=== PATIENT | female | born 1975 | race Two or more races ===

== ENCOUNTER 2017-08-31 02:30 | Emergency (ER) | payer MEDICAID ==
[~2017-08-31] VITALS: Ht 162.6 cm; Wt 91.0 kg
[2017-08-31] MEDS ORDERED: LORazepam 1MG TABLET PO ONE (03:00)
[2017-08-31] MEDS ORDERED: LORazepam 1MG TABLET ONE (03:21)
[2017-08-31 03:27] VITALS: BP 140/90
[2017-08-31] MEDS ORDERED: PLEASE ENTER ALLERGIES MC SCH (04:00)
== END 2017-08-31 03:47 | disposition home or self-care (01) ==
LOC: ED 03:40
DX: F41.1 Generalized anxiety disorder (principal); F10.10 Alcohol abuse, uncomplicated; Z72.89 Other problems related to lifestyle; Z59.0 Homelessness
CPT/HCPCS: 99284

== ENCOUNTER 2018-06-26 08:34 | Emergency (ER) | payer MEDICAID ==
[~2018-06-26] VITALS: Ht 162.6 cm; Wt 67.0 kg
[2018-06-26] MEDS ORDERED: DIPH,PERTUSS(ACELL),TET VAC/PF 0.5 ML IM-VACC ONE ×4 (09:00→10:19)
[2018-06-26] MEDS ORDERED: OXYcodone/APAP 5/325MG TABLET PO ONE (09:00)
[2018-06-26] MEDS ORDERED: LIDOCAINE-MPF 1%, 5ML INFIL ONE (09:00)
[2018-06-26] MEDS ORDERED: ONDANSETRON ODT 4 MG PO ONE (09:00)
[2018-06-26] MEDS ORDERED: LIDOCAINE-MPF 1%, 5ML ONE (09:33)
[2018-06-26] MEDS ORDERED: OXYcodone/APAP 5/325MG TABLET ONE (09:34)
[2018-06-26] MEDS ORDERED: ONDANSETRON ODT 4 MG ONE (10:10)
[2018-06-26 10:24] VITALS: BP 121/67
--- NOTE | 2018-06-26 10:26 | NUR ---
Patient/Caregiver given discharge instructions and they have confirmed that they understand the instructions. Patient ambulatory with steady gait. Pt. has her rx in her hand.
== END 2018-06-26 10:45 | disposition home or self-care (01) ==
LOC: ED 10:42
DX: L03.012 Cellulitis of left finger (principal); Z88.8 Allergy status to other drugs, medicaments and biological substances; Z90.49 Acquired absence of other specified parts of digestive tract; Z72.9 Problem related to lifestyle, unspecified
CPT/HCPCS: 10060; 90471; 90715; 99283; Q0162

== ENCOUNTER → 2018-08-12 | Outpatient (CLI) | payer OTHER | END | disposition home or self-care (01) | LOC: RAD 13:40 | PROVIDERS: ATTEND Orthopaedic Surgery | DX: M19.171 Post-traumatic osteoarthritis, right ankle and foot (principal); M21.6X1 Other acquired deformities of right foot; Z87.81 Personal history of (healed) traumatic fracture ==

== ENCOUNTER 2018-10-15 23:10 | Emergency (ER) | payer MEDICAID, OTHER ==
[~2018-10-15] VITALS: Ht 162.6 cm; Wt 70.0 kg
[2018-10-15 23:11] VITALS: BP 121/73
[2018-10-15] MEDS ORDERED: HYDROcodone/APAP 5/325 TABLET ONE (23:51)
[2018-10-16] MEDS ORDERED: HYDROcodone/APAP 5/325 TABLET PO ONE
[2018-10-16] MEDS ORDERED: BICILLIN-LA 2,400,000 UNITS/4 ML IM ONE
== END 2018-10-16 00:16 | disposition home or self-care (01) ==
LOC: ED 23:59
DX: K04.7 Periapical abscess without sinus (principal)
CPT/HCPCS: 96372; 99283; J0561

== ENCOUNTER 2019-06-17 18:02 | Emergency (ER) | payer MEDICAID ==
[~2019-06-17] VITALS: Ht 162.6 cm; Wt 80.0 kg
--- NOTE | 2019-06-17 18:30 | NUR ---
PT ZAIN FROM STREET. FOUND WANDERING. STS "A LOT OF VODKA". WAS GOING TO ASSISTED THEN TOLD PD SHE OVERDOSED. MEDS IN PURSE: NAPROXEN, EXCEDRIN, MELATONIN, PROMETHAZINE. EXCEDRIN BOTTLE FILLED 2 DAYS AGO, EMPTY. DENIES SI. STS WAS NOT TRYING TO OVERDOSE. DENIES DRUG USE. NOT COMPLIANT W/ RN QUESTIONING. ATTACKED EMS IN TRIAGE, PLACED IN 4 POINT RESTRAINTS BY SECURITY. VSS. SR 70S ON MONITOR. UNABLE TO ELABORATE ON MEDICAL HX. ERMD AT BEDSIDE FOR EVAL. ORDER FOR 4 POINTS SIGNED. LAB AT BEDSIDE. SAFETY MAINTAINED. SITTER IN HALLWAY.
[2019-06-17] MEDS ORDERED: ZIPRASIDONE 20 MG INJ IM ONE ×3 (19:00→20:30)
--- NOTE | 2019-06-17 19:08 | NUR ---
REPORT TO THIEN EVANS.
--- NOTE | 2019-06-17 19:08 | NUR ---
BS REPORT OF PT FROM CRISTINA DICKSON AND ASSUMING CARE OF PT AT THIS TIME.
[2019-06-17 19:28] LABS: BASOPHILS # (AUTO) 0.05 x10^3/uL (0-0.1); BASOPHILS % (AUTO) 1 % (0-1); EOSINOPHILS # (AUTO) 0.24 x10^3/uL (0-0.4); EOSINOPHILS % (AUTO) 4 % (1-7); LYMPHOCYTES # (AUTO) 2.06 x10^3/uL (1-3.4); LYMPHOCYTES % (AUTO) 35 % (22-44); MD NO; MEAN CORPUSCULAR HGB CONC 32.9 g/dL (32.4-35.8); MEAN CORPUSCULAR VOLUME 91.2 fL (80-100); MEAN PLATELET VOLUME 8.1 fL (7.4-10.4); MONOCYTES # (AUTO) 0.52 x10^3/uL (0.2-0.8); MONOCYTES % (AUTO) 9 % (2-9); NEUTROPHILS # (AUTO) 2.96 x10^3/uL (1.8-6.8); NEUTROPHILS % (AUTO) 51 % (42-75); PLATELET COUNT 275 x10^3/uL (130-400); RED BLOOD COUNT 4.51 x10^6/uL (3.82-5.3); RED CELL DISTRIBUTION WIDTH 13.7 % (9.6-15.2)
[2019-06-17 19:34] LABS: ALBUMIN 3.8 g/dL (3.4-5.0); ANION GAP 8 mmol/L (5-15); CALCIUM 8.2 mg/dL (8.5-10.1); CHLORIDE 115 mmol/L (98-107)
[2019-06-17 19:37] LABS: ALANINE AMINOTRANSFERASE 15 U/L (12-78); ALKALINE PHOSPHATASE 68 U/L (45-117); BILIRUBIN,TOTAL 0.3 mg/dL (0.2-1.0); TOTAL PROTEIN 7.4 g/dL (6.4-8.2)
--- NOTE | 2019-06-17 20:33 | NUR ---
PT MEDICATED PER MAR AT THIS TIME.
--- NOTE | 2019-06-17 21:27 | NUR ---
PT RESTRAINTS REMOVED PT IS RESPONDING TO MEDICATIONS ORDERED BY ERP, AND PT IS NOT CURRENTLY AGITATED/COMBATIVE AT THIS TIME.
[2019-06-17 22:58] VITALS: BP 145/71
--- NOTE | 2019-06-17 22:58 | NUR ---
PT ASLEEP IN GURNEY AT THIS TIME; NADN. BILATERAL EQUAL RISE AND FALL OF CHEST NOTED.
--- NOTE | 2019-06-17 23:44 | NUR ---
PT ASLEEP IN [facility] AT THIS TIME; [place]. SITTER OUTSIDE OF PT ROOM FOR OBSERVATION OF PT AT THIS TIME.
--- NOTE | 2019-06-18 01:29 | NUR ---
PT SLEEPING IN [facility] AT THIS TIME;
--- NOTE | 2019-06-18 05:16 | NUR ---
PT D/C WITH D/C SUMMARY. ALL QUESTIONS ANSWERED. PT INSTRUCTED TO WAIT IN LOBBY FOR FOR RIDE HOME. PT PROVIDED WARM BLANKET TO WAIT IN LOBBY WITH AND INSTRUCTED NOT TO TAKE BLANKET OFF OF PROPERTY. PT DENIES ANY OTHER NEEDS PERTAINING TO THIS VISIT, AND AMBULATES TO LOBBY WITH STEADY GAIT FOR D/C HOME.
== END 2019-06-18 05:19 | disposition home or self-care (01) ==
LOC: ED 21:31
DX: F10.220 Alcohol dependence with intoxication, uncomplicated (principal); Y90.9 Presence of alcohol in blood, level not specified
CPT/HCPCS: 36415; 80053; 80307; 85025; 93005; 96372; 99284; J3486

== ENCOUNTER 2019-08-06 19:29 | Emergency (ER) | payer SELFPAY ==
[~2019-08-06] VITALS: Ht 162.6 cm; Wt 80.0 kg
--- NOTE | 2019-08-06 19:42 | NUR ---
Pt noted to ambulate to the bathroom unassisted upon arrival from [facility].
--- NOTE | 2019-08-06 20:01 | NUR ---
Pt presents to room from bathroom. Pt states she has been taking antibiotics for recent URI illness with no relief. Pt cannot recall when she developed symptoms d/t "pain". Pt reports a frontal headache with her nasal congestion. Pt goes on to state her current period started 2 days ago and that she "has had more of them than usual lately". Pt is a vague historian otherwise.
--- NOTE | 2019-08-06 20:19 | NUR ---
pt refusing xrays until after pn. meds
[2019-08-06] MEDS ORDERED: DEXAMETHASONE 4 MG TABLET PO ONE (20:30)
[2019-08-06] MEDS ORDERED: KETOROLAC 30 MG/1 ML IM ONE (20:30)
[2019-08-06] MEDS ORDERED: DEXAMETHASONE 4 MG TABLET ONE (20:39)
[2019-08-06] MEDS ORDERED: KETOROLAC 30 MG/1 ML ONE (20:39)
[2019-08-06 22:01] VITALS: BP 117/57
== END 2019-08-06 22:18 | disposition home or self-care (01) ==
LOC: ED 21:30
DX: S90.32XA Contusion of left foot, initial encounter (principal); R05 Cough; R06.00 Dyspnea, unspecified; W18.39XA Other fall on same level, initial encounter; Y93.89 Activity, other specified; Y92.89 Other specified places as the place of occurrence of the external cause; Y99.8 Other external cause status
CPT/HCPCS: 71046; 73630; 96372; 99284; J1885

== ENCOUNTER 2020-02-20 21:17 | Emergency (ER) | payer OTHER ==
[~2020-02-20] VITALS: Ht 162.6 cm; Wt 63.0 kg
[2020-02-20 21:18] VITALS: BP 112/65
--- NOTE | 2020-02-20 21:28 | NUR ---
DIFFICULT TO GET PT TO ANSWER QUESTIONS IN TRIAGE. NOT CLEAR WITH ANSWERS BUT DOES NOT APPEAR CONFUSED
--- NOTE | 2020-02-20 23:20 | NUR ---
Pt from lobby to ED room 40
--- NOTE | 2020-02-20 23:31 | NUR ---
Pt noted not to be in room at this time, security states pt eloped
== END 2020-02-20 23:34 | disposition left against medical advice (07) ==
LOC: ED 21:47
DX: F10.10 Alcohol abuse, uncomplicated (principal); Z72.9 Problem related to lifestyle, unspecified; Y90.0 Blood alcohol level of less than 20 mg/100 ml
CPT/HCPCS: 99283

== ENCOUNTER 2020-05-30 02:47 | Emergency (ER) | payer SELFPAY ==
--- NOTE | 2020-05-30 02:53 | NUR ---
ESCORTED OUT WITH SECURITY PT REFUSING ALL MEDICAL CARE/ INTERVENTIONS. PT HAS NO COMPLAINT AND WANTS US TO TELL HER WHY SHE IS HERE. ERP UNABLE TO COMPLETE FULL EXAM PT IS UNCOOPERATIVE WITH HIM WELL.
== END 2020-05-30 02:56 | disposition home or self-care (01) ==
LOC: ED 02:50
DX: Z00.00 Encounter for general adult medical examination without abnormal findings (principal); Z72.9 Problem related to lifestyle, unspecified; F17.210 Nicotine dependence, cigarettes, uncomplicated; Z90.49 Acquired absence of other specified parts of digestive tract
CPT/HCPCS: 99283; 99406

== ENCOUNTER 2020-05-30 07:04 | Emergency (ER) | payer SELFPAY ==
[~2020-05-30] VITALS: Ht 134.6 cm; Wt 72.3 kg
[2020-05-30 07:06] VITALS: BP 128/80
[2020-05-30 07:57] LABS: BASOPHILS % (AUTO) 1 % (0-1); EOSINOPHILS % (AUTO) 0 % (1-7); LYMPHOCYTES % (AUTO) 12 % (22-44); MEAN CORPUSCULAR HEMOGLOBIN 31.3 pg (27.0-34.8); MEAN CORPUSCULAR HGB CONC 34.3 g/dL (32.4-35.8); MEAN PLATELET VOLUME 7.2 fL (7.4-10.4); MONOCYTES % (AUTO) 8 % (2-9); NEUTROPHILS % (AUTO) 79 % (42-75); PLATELET COUNT 338 x10^3/uL (130-400); RED BLOOD COUNT 3.98 x10^6/uL (3.82-5.3)
[2020-05-30 07:59] LABS: MD NO
[2020-05-30] MEDS ORDERED: SODIUM CHLORIDE 0.9% 1,000ML IVBOLUS ONE (08:00)
[2020-05-30] MEDS ORDERED: SODIUM CHLORIDE FLUSH 10ML SYR IVF ONE (08:00)
[2020-05-30 08:09] LABS: ALANINE AMINOTRANSFERASE 42 U/L (12-78); ALBUMIN 3.5 g/dL (3.4-5.0); ANION GAP 6 mmol/L (5-15); CALCIUM 8.7 mg/dL (8.5-10.1); CHLORIDE 113 mmol/L (98-107); CREATININE 0.51 mg/dL (0.55-1.02)
[2020-05-30 08:11] LABS: ALKALINE PHOSPHATASE 93 U/L (45-117); BILIRUBIN,TOTAL 0.6 mg/dL (0.2-1.0); TOTAL PROTEIN 6.7 g/dL (6.4-8.2)
[2020-05-30] MEDS ORDERED: ONDANSETRON ODT 4 MG PO ONE (08:30)
[2020-05-30] MEDS ORDERED: IBUPROFEN 200 MG TABLET PO ONE (08:30)
--- NOTE | 2020-05-30 08:30 | NUR ---
PT IN HOSPITAL GOWN. PT INFORMED A URINE SAMPLE WAS ORDERED. PT STATED, THEY ALREADY TOOK MY BLOOD, THEY NEED URINE TOO? PT INFORMED ERP ORDERED THE URINE SAMPLE. PT STATED WELL I CAN'T PEE. INFORMED PT A LITER BLOUS WAS ORDERED WHICH WILL HELP HER PRODUCE A URINE SAMPLE. PT WAS RELUCTANT TO PUT ON HOSPITAL GOWN. EXPLAINED TO PT IT'S PREFERRED SHE BE IN A GOWN SINCE THIS RN WILL NEED TO START AN IV. PT CHANGED INTO GOWN. PT THROWING HERSELF AROUND IN GURNEY AND SIGHING HEAVILY AT EACH REQUEST FROM THIS RN. 1ST ATTEMPT AT IV RESULTED IN SWELLING AND PAIN AT INSERTION SITE. EXPLAINED TO PT THIS IV WILL NOT WORK, WILL NEED TO TRY AGAIN. PT STATED "NO, YOU GUYS KEEP POKING ME. I DON'T WANT YOU TOUCHING ME AGAIN, YOU DON'T KNOW WHAT YOU'RE DOING". THIS RN STARTED TO ASK PT QUESTIONS. WHEN ASKED PT IF SHE HAS FALLEN IN THE LAST FEW MONTHS, PT STATED, OH, I ALMOST FELL OUT OF A WINDOW. THIS RN REPHRASED THE QUESTION TO, IT PT LOST BALANCE AND FELL. PT TURNED OVER WITH BACK TO THIS RN AND REFUSED TO SPEAK ANYMORE. ERP INFORMED PT REFUSING IV PLACEMENT.
--- NOTE | 2020-05-30 08:40 | NUR ---
PT UP TO USE BATHROOM. PT GIVEN URINE CUP AND EXPLAINED TO PT HOW TO PROVIDE URINE SAMPLE. PT STATED SHE UNDERSTANDS
[2020-05-30] MEDS ORDERED: IBUPROFEN 600 MG TABLET ONE (08:43)
[2020-05-30] MEDS ORDERED: ONDANSETRON ODT 4 MG ONE (08:43)
--- NOTE | 2020-05-30 08:50 | NUR ---
PT STATED SHE WAS UNABLE TO VOID. PT DIDN'T WANT IBU AT THIS TIME. PT STATED SHE WILL NOT BE ABLE TO HOLD IT DOWN. PT GIVEN ZOFRAN. PT RESTING IN BED WITH EYES CLOSED AT THIS TIME. WILL CONTINUE TO MONITOR.
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
--- NOTE | 2020-05-30 09:48 | NUR ---
ASKED PT AGAIN FOR A URINE SAMPLE. PT STATED SHE IS UNABLE TO AMBULATE TO BATHROOM DUE TO HER ARTHRITIS. PT STATED SHE WANTS TO WAIT FOR THE IBU TO TAKE EFFECT FIRST. WILL INFORM ERP. PT ABLE TO DRINK WATER AND MILK WITHOUT PROBLEMS
--- NOTE | 2020-05-30 09:50 | NUR ---
PT HAS REMOVED ALL MONITORING EQUIPMENT. HAS PUT HER STREET CLOTHES BACK ON AND IS SLEEPING WITH FACE COVERED. PT ASKING TO BE LEFT ALONE SO SHE CAN REST SHE IS SO SICK. WILL CONINUE TO MONITOR.
== END 2020-05-30 11:29 | disposition home or self-care (01) ==
LOC: ED 08:11
DX: R11.2 Nausea with vomiting, unspecified (principal); R42 Dizziness and giddiness; R19.7 Diarrhea, unspecified; R05 Cough; M79.10 Myalgia, unspecified site; R51.9 Headache, unspecified
CPT/HCPCS: 36415; 80053; 85025; 99283; Q0162

== ENCOUNTER 2020-07-12 19:29 | Emergency (ER) | payer SELFPAY ==
[~2020-07-12] VITALS: Ht 162.6 cm; Wt 65.0 kg
[2020-07-12 20:07] VITALS: BP 125/70
== END 2020-07-12 20:15 | disposition home or self-care (01) ==
LOC: ED 20:00
DX: F15.129 Other stimulant abuse with intoxication, unspecified (principal); F10.10 Alcohol abuse, uncomplicated; F17.210 Nicotine dependence, cigarettes, uncomplicated; Z72.9 Problem related to lifestyle, unspecified; Z90.49 Acquired absence of other specified parts of digestive tract; Y90.0 Blood alcohol level of less than 20 mg/100 ml
CPT/HCPCS: 99283; 99406

== ENCOUNTER 2020-09-10 11:18 | Emergency (ER) | payer SELFPAY ==
[~2020-09-10] VITALS: Ht 162.6 cm; Wt 73.1 kg
[2020-09-10] MEDS ORDERED: LORazepam 2 MG/ML, 1ML ONE (11:53)
[2020-09-10] MEDS ORDERED: LORazepam 2 MG/ML, 1ML IVPush ONE (12:00)
[2020-09-10] MEDS ORDERED: SODIUM CHLORIDE FLUSH 10ML SYR IVF ONE (12:00)
[2020-09-10] MEDS ORDERED: SODIUM CHLORIDE 0.9% 1,000 ML IV ONE (12:00)
--- NOTE | 2020-09-10 12:07 | NUR ---
PIV EST BY EMT. PT MEDICATED PER EMAR. NS INFUSING AT THIS TIME.
--- NOTE | 2020-09-10 12:08 | NUR ---
PT'S STRAIGHT CATH'D USING STERILE TECHNIQUE. URINE COLLECTED AND UA SENT.
[2020-09-10 12:10] LABS: BASOPHILS % (AUTO) 1 % (0-1); EOSINOPHILS % (AUTO) 0 % (1-7); LYMPHOCYTES % (AUTO) 20 % (22-44); MEAN CORPUSCULAR HEMOGLOBIN 29.9 pg (27.0-34.8); MEAN CORPUSCULAR HGB CONC 33.8 g/dL (32.4-35.8); MEAN PLATELET VOLUME 7.4 fL (7.4-10.4); MONOCYTES % (AUTO) 8 % (2-9); NEUTROPHILS % (AUTO) 72 % (42-75); PLATELET COUNT 279 x10^3/uL (130-400); RED BLOOD COUNT 3.95 x10^6/uL (3.82-5.3); RED CELL DISTRIBUTION WIDTH 15.8 % (9.6-15.2)
[2020-09-10 12:14] LABS: MD NO
[2020-09-10 12:17] LABS: MICROSCOPIC AUTO
[2020-09-10 12:23] LABS: ALBUMIN 4.2 g/dL (3.4-5.0); ANION GAP 7 mmol/L (5-15); CALCIUM 8.6 mg/dL (8.5-10.1); CHLORIDE 108 mmol/L (98-107); CREATININE 0.68 mg/dL (0.55-1.02); SALICYLATE LEVEL < 1.7 mg/dL (2.8-20.0)
[2020-09-10 12:28] LABS: AMPHETAMINE SCREEN, URINE Negative (Negative); BARBITURATE SCREEN, URINE Negative (Negative); BENZODIAZEPINE SCREEN, URINE Negative (Negative); CANNABINOID SCREEN, URINE Positive (Negative); COCAINE SCREEN, URINE Negative (Negative); METHADONE SCREEN, URINE Negative (Negative); OPIATE SCREEN, URINE Negative (Negative)
[2020-09-10 12:34] LABS: ALANINE AMINOTRANSFERASE 37 U/L (12-78); ALKALINE PHOSPHATASE 84 U/L (45-117); BILIRUBIN,TOTAL 0.7 mg/dL (0.2-1.0); TOTAL PROTEIN 7.7 g/dL (6.4-8.2)
--- NOTE | 2020-09-10 12:41 | NUR ---
TASK RN, COVERING PRIMARY RN MEAL BREAK. CLINICAL SCREEN AND PHYSICAL ASSESSMENT COMPLETED TO BEST OF ABILITY WITH BOYFRIEND PROVIDING SOME HX. PT TO CT.
[2020-09-10] MEDS ORDERED: OMNIPAQUE 350 MG/ML, 100ML BOTTLE ONE (12:54)
--- NOTE | 2020-09-10 13:10 | NUR ---
PT SLEEPING IN [place]. RESPS EVEN AND UNLABORED. VSS.
--- NOTE | 2020-09-10 15:05 | NUR ---
THIS RN ATTEMPTED TO DC BUT PT IS NOT ANSWERING ANY QUESTIONS AT THIS TIME. EDMD NOTIFIED.
--- NOTE | 2020-09-10 15:53 | NUR ---
EDMD AT BEDSIDE AND OK'D TO DC.
[2020-09-10 15:54] VITALS: BP 113/58
--- NOTE | 2020-09-10 16:35 | NUR ---
PT DIDN'T LEAVE ROOM AFTER DC. SECURITY PAGED.
== END 2020-09-10 16:29 | disposition home or self-care (01) ==
LOC: ED 13:56
DX: F10.220 Alcohol dependence with intoxication, uncomplicated (principal); F41.1 Generalized anxiety disorder; R94.31 Abnormal electrocardiogram [ECG] [EKG]; Z90.49 Acquired absence of other specified parts of digestive tract; Y90.0 Blood alcohol level of less than 20 mg/100 ml
CPT/HCPCS: 36415; 70450; 71045; 74177; 80053; 80299; 80307; 80320; 81001; 82140; 85025; 93005; 96361; 96374; 99285; J2060; J7030; Q9967; 80329; G0480

== ENCOUNTER 2020-09-13 20:26 | Emergency (ER) | payer SELFPAY ==
[~2020-09-13] VITALS: Ht 165.1 cm; Wt 60.0 kg
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
--- NOTE | 2020-09-13 20:55 | NUR ---
UNABLE TO DRAW LABS AT THIS TIME. PT THRASING.
[2020-09-13] MEDS ORDERED: ZIPRASIDONE 20 MG INJ IM ONE (21:00)
--- NOTE | 2020-09-13 21:12 | NUR ---
PT LAYS QUIETLY IN [facility] UNTIL HOSPITAL STAFF WALKS INTO ROOM. PT THEN BEGINS TO THRASH AND IS UNCCOPERATIVE. PT STILL UNABLE TO ANSWER QUESTIONS OR COMMUNICATE.
--- NOTE | 2020-09-13 21:53 | NUR ---
REPORT GIVEN TO CRISTINA PELAEZ
--- NOTE | 2020-09-13 21:53 | NUR ---
BEDSIDE REPORT FROM CRISTINA SONG. [facility] AT [facility], GENE.
--- NOTE | 2020-09-13 23:00 | NUR ---
PT LAYS QUIETLY IN [facility] UNTIL HOSPITAL STAFF WALKS INTO ROOM. PT THEN BEGINS TO THRASH AND IS UNCCOPERATIVE. PT STILL UNABLE TO ANSWER QUESTIONS OR COMMUNICATE. PT CURRENTLY IN TWO POINT RESTRAINTS.
--- NOTE | 2020-09-14 00:01 | NUR ---
PT RESTING QUIETLY IN [facility] CALLED TO COME REMOVE RESTRAINTS AT THIS TIME.
--- NOTE | 2020-09-14 00:04 | NUR ---
PT STILL BEING UNCOOPERATIVE WITH LAB DRAW OR COLLECTION OF URINE SAMPLE.
--- NOTE | 2020-09-14 01:03 | NUR ---
LAB CALLED TO COME DRAW PT. PT STATES SHE WILL ALLOW LAB TO DRAW BLOOD.
[2020-09-14 01:29] LABS: BASOPHILS % (AUTO) 1 % (0-1); EOSINOPHILS % (AUTO) 3 % (1-7); LYMPHOCYTES % (AUTO) 18 % (22-44); MEAN CORPUSCULAR HEMOGLOBIN 30.5 pg (27.0-34.8); MEAN CORPUSCULAR HGB CONC 33.8 g/dL (32.4-35.8); MEAN PLATELET VOLUME 7.3 fL (7.4-10.4); MONOCYTES % (AUTO) 8 % (2-9); NEUTROPHILS % (AUTO) 71 % (42-75); PLATELET COUNT 280 x10^3/uL (130-400); RED BLOOD COUNT 3.97 x10^6/uL (3.82-5.3); RED CELL DISTRIBUTION WIDTH 15.2 % (9.6-15.2)
[2020-09-14 01:30] LABS: MD NO
[2020-09-14 01:38] LABS: ALBUMIN 3.8 g/dL (3.4-5.0); ANION GAP 6 mmol/L (5-15); CALCIUM 8.7 mg/dL (8.5-10.1); CHLORIDE 107 mmol/L (98-107)
[2020-09-14 01:40] LABS: ALANINE AMINOTRANSFERASE 27 U/L (12-78); ALKALINE PHOSPHATASE 73 U/L (45-117); BILIRUBIN,TOTAL 0.9 mg/dL (0.2-1.0); CREATININE 0.68 mg/dL (0.55-1.02); TOTAL PROTEIN 7.6 g/dL (6.4-8.2)
[2020-09-14 01:42] LABS: SALICYLATE LEVEL < 1.7 mg/dL (2.8-20.0)
--- NOTE | 2020-09-14 02:11 | NUR ---
BEDSIDE REPORT TO CRISTINA LR.
--- NOTE | 2020-09-14 03:00 | NUR ---
PT REMINDED MULTIPLE TIME NOT TO SPIT ON THE FLOOR. WATER PROVIDED REQUESTED. SITTER AT DOORWAY. VS STABLE.
--- NOTE | 2020-09-14 03:38 | NUR ---
PT THRASHING ON BED, SECURITY CALLED. SITUATION WAS DE-ESCALATED WITH ASSISTANCE OF JANET SPENCE. PT ASKED TO CHANGE INTO A GOWN SO STAFF CAN SECURE HER BELONGINGS. PT UNCOOPERATIVE WITH STAFF.
[2020-09-14] MEDS ORDERED: ZIPRASIDONE 20 MG INJ IM ONE ×2 (03:42→04:00)
--- NOTE | 2020-09-14 03:59 | NUR ---
PT THRASHING AROUND ON GURNEY, PT CALMED DOWN WITH PROMISE OF FOOD. PT FULLY UNDRESSED, CLOTHES AND BELONGINGS BAGGED AND PLACED IN LOCKER. SITTER AT DOORWAY AND VSS.
--- NOTE | 2020-09-14 04:05 | NUR ---
PT MEDICATED PER EMAR DUE TO CONT'D THRASHING. ALL MONITORING IN PLACE, SITTER AT DOORWAY, VSS.
--- NOTE | 2020-09-14 05:22 | NUR ---
RECIEVED REPORT FROM BE EVANS.
--- NOTE | 2020-09-14 05:30 | NUR ---
PT. RESTING ON GURNEY WITH EYES CLOSED. CARDIAC, SPO2, B/P MONITORS ARE IN PLACE. SITTER IN DIRECT VIEW OF PT. FOR SAFETY.
--- NOTE | 2020-09-14 06:09 | NUR ---
PT RESTING IN BED BILATERAL CHEST RISE AND FALL. VSS.
--- NOTE | 2020-09-14 06:43 | NUR ---
HOSPITAL BED REQUESTED FOR PT. PT. IS LEGAL HOLD. SITTER IN DIRECT VIEW.
--- NOTE | 2020-09-14 07:07 | NUR ---
Note bassam in EDM - 09/14/20 at 0708 by MEL REPORT TO CRISTINA HERNANDEZ TO ASSUME CARE OF PT. AT THIS TIME. PER DR. MONTES PT. TO BE CARD TELE ADMIT.
--- NOTE | 2020-09-14 07:08 | NUR ---
REPORT TO CRISTINA HERNANDEZ TO ASSUME CARE OF PT. AT THIS TIME. SITTER REMAINS IN [place], PT. REMAINS ON MONITORS, RESTING ON GURNEY WITH EYES CLOSED.
--- NOTE | 2020-09-14 07:10 | NUR ---
assumed care of pt. report from Karen EVANS pt here on legal hold for inability to care for self. per report, pt was found outside the mental health facility inappropriatly dressed and agitated. pt was previosuly restrained, but is not at this time. pt currently resting on her side in position of comfort with eyes closed. no apparent distress. room secure and sitter present for safety
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
--- NOTE | 2020-09-14 08:25 | NUR ---
pt has consumed 75% of meal tray. pt ambulated to BR for urine sample and morning hygiene pt education given regarding urine sample collection, hat placed in toilet
--- NOTE | 2020-09-14 08:45 | NUR ---
pt missed specimen collection cup pt back to room. pt placed on hospital bed for comfort. fresh linens applied room secure. sitter present for safety
--- NOTE | 2020-09-14 09:15 | NUR ---
pt given more PO fluids per request pt talking to herself. room secure. sitter present for safety
--- NOTE | 2020-09-14 10:00 | NUR ---
pt resting on bed in position of comfort. still talking to herself room secure. sitter present for safety
--- NOTE | 2020-09-14 10:40 | NUR ---
pt has povided urine sample
--- NOTE | 2020-09-14 10:45 | NUR ---
pt now agitated and pacing in her room. pt pulling blankets around her and talking to herself
--- NOTE | 2020-09-14 10:50 | NUR ---
pt more agitated and has left her room yelling about God pt re-orientation. atempting to calm pt
--- NOTE | 2020-09-14 11:00 | NUR ---
pt agrees to return to her room room secure. sitter present for patient safety
--- NOTE | 2020-09-14 11:16 | NUR ---
pt continues to be agitated and fidgeing in her bed, but is in no apparent distress and remains in her room more PO fluids given
[2020-09-14 11:26] LABS: AMPHETAMINE SCREEN, URINE Positive (Negative); BARBITURATE SCREEN, URINE Negative (Negative); BENZODIAZEPINE SCREEN, URINE Positive (Negative); CANNABINOID SCREEN, URINE Positive (Negative); COCAINE SCREEN, URINE Negative (Negative); METHADONE SCREEN, URINE Negative (Negative); OPIATE SCREEN, URINE Negative (Negative)
--- NOTE | 2020-09-14 12:10 | NUR ---
pt resting in position of comfort. room secure. sitter present for safety. awaiting psych consult
--- NOTE | 2020-09-14 12:18 | NUR ---
meal tray ordered
--- NOTE | 2020-09-14 12:30 | NUR ---
Marielle, psych BOILERMAKER HELPER at bedside or eval
[2020-09-14] MEDS ORDERED: OLANZAPINE ODT 10MG PO ONE (13:00)
--- NOTE | 2020-09-14 13:00 | NUR ---
psych eval continues at bedside room secure. sitter present for safety report to Leonid EVANS who assumes care of this pt
--- NOTE | 2020-09-14 13:26 | NUR ---
MEDS ORDERED FROM PHARMACY
--- NOTE | 2020-09-14 14:12 | NUR ---
MEDICATDD PER ORDERS. GIVEN MEAL TRAY. PT REDIRECTABLE, WILL WANDER HALLS
--- NOTE | 2020-09-14 15:09 | NUR ---
PT RESTING, SITTER PRESENT
--- NOTE | 2020-09-14 15:13 | NUR ---
TP: PACKET FAXED TO [facility] ONLY PER JOSE MERCEDES.
--- NOTE | 2020-09-14 16:13 | NUR ---
SEEN BY NUTRITION AND DIETETICS INSTRUCTOR AND HIGHWAY COMMISSIONER. SNEHA PRESENT
--- NOTE | 2020-09-14 17:32 | NUR ---
MEAL TRAY ORDERED. GIVEN BEVERAGES
[2020-09-14] MEDS: OLANZAPINE 5 MG TABLET PO SCH (17:46)
--- NOTE | 2020-09-14 17:51 | NUR ---
PT HAD OUTBURST IN [place], YELLING AND RUNNING. PT REDIRECTED TO ROOM. MD GAYTAN TO GIVE ZYPREXA ODT 10 MG.
--- NOTE | 2020-09-14 18:26 | NUR ---
PT GIVEN MEAL. COOPERATIVE, SITTING ON BED
--- NOTE | 2020-09-14 18:50 | NUR ---
REPORT FROM BHUPINDER EVANS.
--- NOTE | 2020-09-14 19:38 | NUR ---
RESTING IN BED SITTER IN PLACE NAD.
--- NOTE | 2020-09-14 22:04 | NUR ---
PT APPEARS TO BE SLEEPING, SITTER IN PLACE.
--- NOTE | 2020-09-14 22:49 | NUR ---
report to philipp laura. as
--- NOTE | 2020-09-14 23:18 | NUR ---
Pt sleeping at this time. Lights on. No acuted distress noted. Room secured and sitter at doorway, will cont to monitor.
--- NOTE | 2020-09-15 00:23 | NUR ---
Pt sleeping on left lateral side at this time. No acute distress noted, room secured and sitter at doorway. Will cont to monitor.
--- NOTE | 2020-09-15 02:01 | NUR ---
Pt sleeping on her back with blanket over her head. Pt wakes to name and asked if she wanted the lights out, pt said no and pulled blanket over her head again. Room secured and sitter in line of sight. Will cont to monitor.
--- NOTE | 2020-09-15 03:06 | NUR ---
Pt sleeping on gurney, head no longer covered with blanket. No acute distress noted. Room secured, sitter in doorway. Will cont to monitor.
--- NOTE | 2020-09-15 05:00 | NUR ---
SBAR REC'D AND ASSUMED PT CARE. PT SLEEPING IN HOSPITAL BED, RESP EVEN AND NON-LABORED, NAD NOTED. ROOM SECURE AND SITTER IN HALLWAY WITH PT IN DIRECT VIEW
--- NOTE | 2020-09-15 06:00 | NUR ---
PT CONTINUES SLEEPING, RESP EVEN, NON-LABORED. SITTER IN HALLWAY WITH PT IN VIEW
--- NOTE | 2020-09-15 06:55 | NUR ---
REPORT RECEIVED FROM CRISTINA BENSON FOR TRANSFER OF PATIENT CARE.
--- NOTE | 2020-09-15 07:02 | NUR ---
PATIENT RESTING IN HOSPITAL BED, EYES CLOSED, RESP EVEN AND UNLABORED, SUICIDE PRECAUTIONS IN PLACE, SITTER IN LINE OF SIGHT.
--- NOTE | 2020-09-15 08:11 | NUR ---
PATIENT RESTING IN HOSPITAL BED, EYES CLOSED, RESP EVEN AND UNLABORED, SUICIDE PRECAUTIONS IN PLACE, SITTER IN LINE OF SIGHT.
[2020-09-15] MEDS: OLANZAPINE 5 MG TABLET PO SCH (08:35)
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
--- NOTE | 2020-09-15 08:55 | NUR ---
BREAKFAST TRAY PROVIDED, PATIENT WITH FLIGHT OF IDEAS BUT COOPERATIVE, VSS, SUICIDE PRECAUTIONS IN PLACE, SITTER IN LINE OF SIGHT.
--- NOTE | 2020-09-15 09:06 | NUR ---
THIS RN WAS IN ROOM 1 TAKING PATIENT VITALS, WHEN SITTER YELLED "I NEED A NURSE SHE'S LEAVING." THIS RN STEPPED OUT OF ROOM AND SAW PATIENT RUNNING DOWN [place], MULTIPLE STAFF TRIED TO REDIRECT PATIENT BACK TO ROOM, PATIENT RAN OUT AMBULANCE BAY DOORS AND DOWN STREET OUT OF SIGHT. PATIENT DRESSED IN ONLY HOSPITAL GOWN.
--- NOTE | 2020-09-15 09:30 | NUR ---
PATIENT ESCORTED BACK TO ED BY [employer] IN HANDCUFFS, WALKED TO ROOM, HANDCUFFS REMOVED, PATIENT COOPERATIVE AND AGREEABLE TO STAYING IN ROOM. SUICIDE PRECAUTIONS IN PLACE, SITTER IN LINE OF SIGHT.
--- NOTE | 2020-09-15 09:31 | NUR ---
LATE ENTRY FOR ELOPEMENT. PT CAME OUT OF ROOM AND RAN DOWN THE [place] AND OUT THE AMBULANCE BAY DOOR. SECURITY WAS CALLED BUT PT RAN OFF OF THE PROPERTY. EMS WAS IN OUR PARKING LOT AND WAS ABLE TO FOLLOW PT, THEY RPT THAT THEY APPROCHED PT BUT PT REFUSED TO GET INTO THE AMBULANCE. EMS CREW GAVE HER A BLANKET AND A BOTTLE OF WATER AND HAD [facility] DISPATCH NOTIFY [employer]. [employer] OFFICERS CALLED THIS RN TO CONFIRM PT WAS ON A LEGAL HOLD. THEY THEN WERE ABLE TO GET PT INTO THEIR CAR AND RTD HER TO OUR ED. PT UPRIGHT STEADY GAIT IN NO APPARENT DISTRESS. PT COOPERATIVE WITH THIS RN AND RTD TO ROOM W/O FURTHER INCIDENT.
--- NOTE | 2020-09-15 09:56 | NUR ---
WATER AND SNACKS PROVIDED TO PATIENT, SUICIDE PRECAUTIONS IN PLACE, SITTER IN LINE OF SIGHT.
--- NOTE | 2020-09-15 10:36 | NUR ---
PATIENT RESTING IN HOSPITAL BED WITH EYES CLOSED, RESP EVEN AND UNLABORED, SUICIDE PRECAUTIONS IN PLACE, SITTER IN LINE OF SIGHT.
--- NOTE | 2020-09-15 11:38 | NUR ---
PATIENT RESTING IN HOSPITAL BED WITH EYES CLOSED, RESP EVEN AND UNLABORED, SUICIDE PRECAUTIONS IN PLACE, SITTER IN LINE OF SIGHT. LUNCH TRAY ORDERED.
--- NOTE | 2020-09-15 11:52 | NUR ---
PATIENT ASSISTED TO SHOWER WITH PRECIPITATOR OPERATOR SUPERVISING.
--- NOTE | 2020-09-15 12:03 | NUR ---
PATIENT BACK IN ROOM FROM SHOWER, SUICIDE PRECAUTIONS IN PLACE, SITTER IN LINE OF SIGHT.
--- NOTE | 2020-09-15 12:16 | NUR ---
JULIA ALVES AT BEDSIDE FOR EVALAUATION.
[2020-09-15] MEDS ORDERED: DIPHENHYDRAMINE 50 MG CAPSULE ONE (12:22)
[2020-09-15] MEDS ORDERED: LORazepam 1MG TABLET ONE (12:22)
[2020-09-15] MEDS ORDERED: HALOPERIDOL 5 MG TABLET ONE (12:22)
--- NOTE | 2020-09-15 12:27 | NUR ---
PATIENT GETTING AGITATED, COMING OUT OF ROOM TO NURSES STATION, FLIGHT OF IDEAS, NONSENSICAL SPEECH, PATIENT REDIRECTED BACK TO ROOM BY SECURITY, MEDICATED PER eMAR, SITTER IN LINE OF SIGHT.
[2020-09-15] MEDS ORDERED: DIPHENHYDRAMINE 25 MG CAPSULE PO PRN ×2 (12:30)
[2020-09-15] MEDS ORDERED: HALOPERIDOL 5 MG/ML IM PRN (12:30)
[2020-09-15] MEDS ORDERED: DIPHENHYDRAMINE 50 MG/ML, 1ML IM PRN (12:30)
[2020-09-15] MEDS ORDERED: LORazepam 1MG TABLET PO PRN ×2 (12:30)
[2020-09-15] MEDS ORDERED: LORazepam 2 MG/ML, 1ML IM PRN (12:30)
[2020-09-15] MEDS ORDERED: HALOPERIDOL 5 MG TABLET PO PRN (12:30)
--- NOTE | 2020-09-15 12:53 | NUR ---
PATIENT BIT HER RIGHT THUMB, SMALL SKIN OPENING NOTED, NOT ACTIVELY BLEEDING, BAND-AID PROVIDED TO PATIENT. SITTER IN LINE OF SIGHT.
--- NOTE | 2020-09-15 12:56 | NUR ---
LUNCH TRAY PROVIDED TO PATIENT.
--- NOTE | 2020-09-15 13:33 | NUR ---
PATIENT RESTING IN HOSPITAL BED, EYES CLOSED, RESP EVEN AND UNLABORED, SUICIDE PRECAUTIONS IN PLACE, SITTER IN LINE OF SIGHT.
--- NOTE | 2020-09-15 14:59 | NUR ---
PATIENT RESTING IN HOSPITAL BED WITH EYES CLOSED, RESP EVEN AND UNLABORED, SUICIDE PRECAUTIONS IN PLACE, SITTER IN LINE OF SIGHT.
--- NOTE | 2020-09-15 16:16 | NUR ---
PATIENT RESTING IN HOSPITAL BED, EYES CLOSED, RESP EVEN AND UNLABORED, SUICIDE PRECAUTIONS IN PLACE, SITTER IN LINE OF SIGHT.
--- NOTE | 2020-09-15 17:01 | NUR ---
DINNER TRAY ORDERED.
--- NOTE | 2020-09-15 17:40 | NUR ---
DINNER TRAY PROVIDED, PATIENT SLEEPING, RESP EVEN AND UNLABORED, SUICIDE PRECAUTIONS IN PLACE, SITTER IN LINE OF SIGHT.
--- NOTE | 2020-09-15 18:30 | NUR ---
PATIENT RESTING IN HOSPITAL BED, EYES CLOSED, RESP EVEN AND UNLABORED, SUICIDE PRECAUTIONS IN PLACE, SITTER IN LINE OF SIGHT.
--- NOTE | 2020-09-15 19:13 | NUR ---
PT SLEEPING IN HOSPITAL BED. RR EVEN NON LABORED. SITTER OUTSIDE OF ROOM.
--- NOTE | 2020-09-15 20:40 | NUR ---
PT SLEEPING IN HOSPITAL BED. RR EVEN NON LABORED. SITTER OUTSIDE OF ROOM.
[2020-09-15] MEDS ORDERED: OLANZAPINE 10 MG TABLET PO SCH (21:00)
--- NOTE | 2020-09-15 21:20 | NUR ---
PT ATE DINNER TRAY. REMAINS CALM & COOPERTAIVE. SITTER AT BS. WILL CTM.
--- NOTE | 2020-09-15 22:20 | NUR ---
PT SLEEPING IN HOSPITAL BED. RR EVEN NON LABORED. SITTER OUTSIDE OF ROOM.
--- NOTE | 2020-09-15 23:22 | NUR ---
PT SLEEPING IN HOSPITAL BED. RR EVEN NON LABORED. SITTER OUTSIDE OF ROOM. DEFERRED PSYCH RE-ASMT AT THIS TIME.
--- NOTE | 2020-09-16 00:01 | NUR ---
PT SLEEPING IN HOSPITAL BED. RR EVEN NON LABORED. SITTER OUTSIDE OF ROOM. DEFERRED PSYCH RE-ASMT AT THIS TIME.
--- NOTE | 2020-09-16 01:00 | NUR ---
PT SLEEPING IN HOSPITAL BED. RR EVEN NON LABORED. SITTER OUTSIDE OF ROOM. DEFERRED PSYCH RE-ASMT AT THIS TIME.
--- NOTE | 2020-09-16 02:08 | NUR ---
PT SLEEPING IN HOSPITAL BED. RR EVEN NON LABORED. SITTER OUTSIDE OF ROOM. DEFERRED PSYCH RE-ASMT AT THIS TIME.
[2020-09-16 02:20] VITALS: BP 106/66
--- NOTE | 2020-09-16 02:22 | NUR ---
PT AWAKE, REQUESTING SNACKS. VSS. PT DENIES S/I AT THIS TIME. SITTER REMAINS OUTSIDE OF ROOM. WILL CTM.
--- NOTE | 2020-09-16 02:52 | NUR ---
PT UP WALKING THE HALLS, REQUESTING TO GO OUT AND SMOKE, ATTEMPTING TO MAKE PT AWARE OF POLICY, BECOMING IRRITABLE, ESCORTED BACK TO ROOM BY SELF & SITTER. SHOUTING AT STAFF. SITTING ON BED, SITTER OUTSIDE OF ROOM. WILL CTM.
--- NOTE | 2020-09-16 03:41 | NUR ---
PT RESTING ON HOSPITAL BED, RR EVEN NON LABORED. NAD. SITTER OUTSIDE OF ROOM. WILL CTM.
--- NOTE | 2020-09-16 04:29 | NUR ---
PT SLEEPING IN HOSPITAL BED. RR EVEN NON LABORED. SITTER OUTSIDE OF ROOM.
--- NOTE | 2020-09-16 06:58 | NUR ---
ASSUMED CARE OF PT. PT IS SLEEPING, CHEST RISE OBSERVED.
--- NOTE | 2020-09-16 08:20 | NUR ---
Pt up, breakfast tray provided and decaf coffee.
[2020-09-16] MEDS ORDERED: LORazepam 1MG TABLET ONE (08:36)
[2020-09-16] MEDS ORDERED: OLANZAPINE 5 MG TABLET ONE (08:36)
--- NOTE | 2020-09-16 08:54 | NUR ---
PT AGITATED IN HALLWAY, WALKING TOWARDS DOORS SHE DIDN'T WANT TO STAY. PT RAMBLING, WITH NO SPECIFIC TOPIC. SHE IS GUARDED AND SUSPICIOUS. AGREEABLE TO MEDICATION.
[2020-09-16] MEDS ORDERED: OLANZAPINE 5 MG TABLET PO SCH (09:00)
--- NOTE | 2020-09-16 09:13 | NUR ---
Meghann reported that when pt went into bathroom, she heard vomit sound. Pt denies emesis. Addendum: 09/16/20 at 0914 by BRODY Pt continues to yell and come out into zhong and pacing, pt instructed to stay in her room, offered to turn on TV, provided crayons and paper. As of now pt is not redirectable.
--- NOTE | 2020-09-16 09:18 | NUR ---
Updated labs and vitals faxed to [facility].
--- NOTE | 2020-09-16 09:59 | NUR ---
Pt is sleeping
--- NOTE | 2020-09-16 10:04 | NUR ---
Jasson from [facility] called and was provided VS, labs, medication
--- NOTE | 2020-09-16 10:45 | NUR ---
THROUGHPUT: PT ON ACCEPTED AT [facility], BERNY SIGNED FAXED PCS TO [facility], PHYSICIAN'S ASSISTANT AT 1130, PACKET COMPLETED
== END 2020-09-16 11:38 ==
LOC: EDBD 20:26 → MERGE 20:56 → ED 20:56
DX: F23 Brief psychotic disorder (principal); F22 Delusional disorders
CPT/HCPCS: 36415; 80053; 80299; 80307; 80320; 84703; 85025; 96372; 99285; J3486; 80329; G0480

== ENCOUNTER 2021-02-01 03:49 | Emergency (ER) | payer MEDICAID ==
[~2021-02-01] VITALS: Ht 162.6 cm; Wt 68.9 kg
--- NOTE | 2021-02-01 05:20 | NUR ---
PT C/O OF BACK FOR LAST FEW MONTHS. PT STATES SHE THINK SHE BROKE HER BACK BY SITTING ON A HARD SURFACE FOR TOO LONG. PT AMBULATED TO ROOM. CHANGED INTO GOWN. CMS INTACT IN BOTH FEET ATTACHED TO MONITORS, VSS. NADN. BED IN LOW, RAILS ENGAGED, CALL LIGHT ON LAP. WCTM
--- NOTE | 2021-02-01 07:07 | NUR ---
GAVE REPORT TO JINNY EVASN. TRANSFER OF CARE
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
[2021-02-01 07:25] VITALS: BP 128/78
--- NOTE | 2021-02-01 07:37 | NUR ---
PATIENT REFUSED TO LEAVE, GOT SECURITY TO HELP AND SHE WAS ANGRY SCREAMING AND YELLING, BUT LEFT.
== END 2021-02-01 07:39 | disposition home or self-care (01) ==
LOC: ED 07:35
DX: R07.89 Other chest pain (principal); Z20.822 Contact with and (suspected) exposure to COVID-19; B34.9 Viral infection, unspecified; R06.02 Shortness of breath; R94.31 Abnormal electrocardiogram [ECG] [EKG]
CPT/HCPCS: 71045; 93005; 99285; U0003; U0005